=== PATIENT | male | born 1975 | race Caucasian/White ===

== ENCOUNTER 2017-02-27 07:23 | Outpatient (CLI) ==
[2017-02-27 08:49] LABS: CREATININE 1.18 mg/dL (0.60-1.10)
--- NOTE | 2017-02-27 09:54 | CT ---
Exam: CT exam of the neck soft tissues with intravenous contrast. Comparison: None available. Reason for exam: Neck mass. FINDINGS: No displaced fractures are seen within the skull base or imaged portions of the maxilla. There is no intra or extraconal inflammatory finding. No soft tissue lesion is seen within the aer odigestive tract. The parotid and submandibular glands are grossly unremarkable. There is mild het erogenicity of the left inferior thyroid lobe. There is an anomalous course of what is presumed to be the right external jugular vein which is seen anterior to the thyroid gland. The arterial vasculature within the neck is unremarkable. No discrete fluid collection is seen. No pathologic appearing cervical lymph nodes. No osteoblastic or osteolytic lesions are seen within the cervical spine. Impression: 1. No contrast enhancing mass lesion is seen within the soft tissues of the neck. 2. 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
== END 2017-02-27 07:24 | disposition home or self-care (01) ==
LOC: RAD 07:23
PROVIDERS: ATTEND Family Medicine
DX: R22.1 Localized swelling, mass and lump, neck (principal)
CPT/HCPCS: 36415; 82565